=== PATIENT | male | born 2000 | race Two or more races ===

== ENCOUNTER 2019-01-07 21:45 | Emergency (ER) | payer BC ==
[2019-01-07] MEDS ORDERED: RINGERS SOLUTION,LACTATED 1,000 ML IV ONE (23:11)
[2019-01-07] MEDS ORDERED: ONDANSETRON HCL INJ/PF 4 MG/2 ML SDV IV ONE (23:11)
--- NOTE | 2019-01-07 23:14 | ER Document Report ---
ED General - General Chief Complaint: ETOH Abuse Stated Complaint: ETOH Time Seen by Provider: 01/07/19 22:59 - HPI Notes: 18-year-old male brought in by family members with possible seizure and alcohol intoxication. Patient is not a drinker, here visiting from [place] with family. Family found out today that his friend yesterday. He had alleged 4 mixed drinks unbeknownst to his family members, appear to be intoxicated and they witnessed him having with a thought it first was a fake seizure but later becomes concerned it was real, stated it lasted 45 minutes however he was able to converse during the time he was shaking. He has no antecedent history of seizure. No antecedent history of headache. No history of alcohol or drug abuse. No history of head injury. Moderate intensity, sudden onset, nonradiating. Does not verbalize any suicidal or homicidal ideation. No other modifying factors, no other associated symptoms, no other provocative or palliative factors. - Related Data Allergies/Adverse Reactions: avocado Allergy (Verified 01/07/19 23:30) Past Medical History - Social History Smoking Status: Unknown if Ever Smoked Family History: Reviewed & Not Pertinent - Medical History Medical History: Negative Review of Systems - Review of Systems Notes: Review of systems as in the history of present illness, otherwise negative x 10 systems. Physical Exam - Vital signs Vitals: Resp BP Pulse Ox 11 L 125/46 L 99 01/07/19 22:23 01/07/19 22:23 01/07/19 22:23 - Notes Notes: General: Well developed, well nourished. HEENT: Normocephalic, mild left nasal trauma, controlled bleeding. No deformity. PEERL. No conjunctival injection. Neck: Supple, no significant adenopathy. No meningismus. Chest: Clear bilaterally, good air entry. Abdomen: Soft, non-tender, nondistended. Back: Non-tender. Normal ROM Extremities: No cyanosis, clubbing or edema. Vascular: Symmetric peripheral pulses, normal capillary refill. Skin: No significant rash. No petechiae or purpura. Motor: Normal tone and power. Symmetric. Neurologic: Alert and oriented to person place and time. Cranial nerves II-12 are intact. Sensation intact and symmetric in the upper and lower extremities. No cerebellar findings including finger-nose testing. No clonus. Gait normal. Funduscopic exam shows crisp disc margins, no evidence of papilledema. Course - Re-evaluation Re-evalutation: 01/07/19 23:14 Well-appearing 18-year-old male presents with the after mentioned symptoms. Clinically appears to be mild to moderately intoxicated. He did vomit once prior to arrival. Otherwise benign normal exam, no neurologic deficits. With regard to his possible seizure is unclear whether this was a true seizure or pseudoseizure or possibly complex partial seizure. Given the potential for intracranial mass, proceed with CT imaging. Basic labs, alcohol level, serial exams and reassess. 01/07/19 23:14 01/07/19 23:[address] At this time will continue to watch him allow him to achieve clinical sobriety and reassess. 01/07/19 23:43 01/08/19 02:21 Patient is now acquiesced to CT imaging. CT is unremarkable. Blood alcohol level is elevated, is metabolized and is clinically sober at discharge. Given the uncertainty of her potential seizure, is given seizure instructions but will follow-up as an outpatient. Otherwise made of his labs are unremarkable, remains neurologically intact and stable. - Vital Signs Vital signs: Temp Pulse Resp BP Pulse Ox 16 125/46 L 100 01/08/19 00:00 01/07/19 22:23 01/08/19 00:00 - Laboratory Result Diagrams: 01/07/19 23:02 Laboratory results interpreted by me: 01/07/19 23:02 Acetaminophen < 10 L Discharge - Discharge Clinical Impression: Alcohol intoxication Qualifiers: Complication of substance-induced condition: uncomplicated Qualified Code(s): F10.920 - Alcohol use, unspecified with intoxication, uncomplicated Condition: Stable Disposition: HOME, SELF-CARE Instructions: Acute Alcohol Intoxication ([facility]), New Seizure ([facility])
[2019-01-07 23:31] LABS: ALCOHOL 149 mg/dL (NONE DETECTED); ANION GAP 11 (5-19); BLOOD UREA NITROGEN 13 mg/dL (7-20); CALCIUM 8.8 mg/dL (8.4-10.2); CARBON DIOXIDE 26 mmol/L (22-30); CHLORIDE 107 mmol/L (98-107); GLUCOSE 86 mg/dL (75-110); POTASSIUM 4.7 mmol/L (3.6-5.0)
[2019-01-07 23:41] LABS: ACETAMINOPHEN < 10 ug/mL (10-30)
[2019-01-07 23:47] LABS: URINE AMPHETAMINES SCREEN NEGATIVE; URINE BARBITURATES SCREEN NEGATIVE; URINE BENZODIAZEPINES SCREEN NEGATIVE; URINE COCAINE SCREEN NEGATIVE; URINE MARIJUANA (THC) SCREEN NEGATIVE; URINE METHADONE SCREEN NEGATIVE; URINE PHENCYCLIDINE SCREEN NEGATIVE
--- NOTE | 2019-01-08 01:42 | RADIOLOGY REPORT (SQ) ---
EXAM DESCRIPTION: CT HEAD WITHOUT IV CONTRAST COMPLETED DATE/TME: 01/08/2019 00:35 CLINICAL HISTORY: 18 years, Male, [place], possible new onset seizure COMPARISON: None. TECHNIQUE: Noncontrast CT brain. Images stored on PACS. All CT scanners at this facility use dose modulation, iterative reconstruction, and/or weight based dosing when appropriate to reduce radiation dose to as low as reasonably achievable (ALARA). [facility]: Dose Right [facility]: CareDose [facility]: Dose Right [facility]: Teradose 4D [facility]: [employer] LIMITATIONS: None. FINDINGS: The ventricles, sulci, and cisterns are within normal limits. The hung-white matter differentiation is preserved. There is no mass effect, midline shift, intra- or extra-axial fluid collection/acute hemorrhage. The osseous structures are unremarkable. The paranasal sinuses reveal mild mucosal thickening of the LEFT maxillary sinus otherwise the remaining paranasal sinuses and mastoid air cells are clear. IMPRESSION: No acute intracranial abnormalities. TECHNICAL DOCUMENTATION: Quality ID # [id number]: Final reports with documentation of one or more dose reduction techniques (e.g., Automated exposure control, adjustment of the mA and/or kV according to patient size, use of iterative reconstruction technique) copyright 2011 [employer]- All Rights Reserved
[2019-01-08 02:38] VITALS: BP 91/52
== END 2019-01-08 02:36 | disposition home or self-care (01) ==
LOC: ER 21:45
DX: F10.129 Alcohol abuse with intoxication, unspecified (principal); R56.9 Unspecified convulsions
CPT/HCPCS: 36415; 80307 ×3; 80048; 70450; J2405; J7120; 96361; 96374; 99284